=== PATIENT | female | born 1995 | race Caucasian/White ===

== ENCOUNTER 2017-10-20 23:08 | Emergency (ER) | payer BC, OTHER ==
[2017-10-20] MEDS ORDERED: NS 0.9% 1000 ML*IV.FLUID IV ONE (23:24)
[2017-10-20] MEDS ORDERED: Ondansetron ODT TAB* 4 MG ONE (23:45)
[2017-10-20] MEDS ORDERED: Acetaminophen TAB* 325 MG PO ONE (23:46)
--- NOTE | 2017-10-20 23:46 | ED ---
Influenza-Like Illness - HPI Summary HPI Summary: Pt here w/ acute onset fever, chills, generalized weakness, mid to lower back pain, headache, dizziness, ST, lower ab pressure and ribs feel tight. Denies cough, sneezing, rhinorrhea, otalgia, rash, dysuria, vaginal sx. Imms are UTD. She just returned to [place] from [facility] - she lives in [facility] but recently traveled to [facility] for a few days. She is in the . No known sick contacts. LMP Dec 1-4. These are irregular d/t rigorous fitness. When she's not as active , her cycle returns and is normal. - History of Current Complaint Chief Complaint: EDFluSymptoms Time Seen by Provider: 10/20/17 23:21 Hx Obtained From: Patient, Family/[employer] Teacher - parents - Allergy/Home Medications Allergies/Adverse Reactions: Allergies Allergy/AdvReac Type Severity Reaction Status Date / Time No Known Allergies Allergy Verified 08/10/15 21:18 PMH/Surg Hx/FS Hx/Imm Hx Previously Healthy: Yes Endocrine/Hematology History: Denies: Hx Diabetes, Hx Thyroid Disease, Autoimmune Disease Cardiovascular History: Reports: Other Cardiovascular Problems/Disorders - RIGHT SIDED HEART ENLARGEMENT AND IRREGULAR HEARTBEAT Denies: Hx Hypertension, Hx Pacemaker/ICD Respiratory History: Denies: Hx Asthma, Hx Chronic Obstructive Pulmonary Disease (COPD) GI History: Denies: Hx Ulcer Sensory History: Denies: Hx Hearing Aid Psychiatric History: Denies: Hx Panic Disorder - Surgical History Surgery Procedure, Year, and Place: LYMPH NODE BX Infectious Disease History: No Infectious Disease History: Reports: Traveled Outside the [place] in Last 30 Days - [place]; [facility] Denies: Hx Hepatitis, Hx Human Immunodeficiency Virus (HIV), History Other Infectious Disease - Family History Known Family History: Positive: None - Social History Occupation: Employed Full-time - Lives: Dormitory/Roommates - lives in [facility] Alcohol Use: None Hx Substance Use: No Substance Use Type: Reports: None Hx Tobacco Use: No Smoking Status (MU): Never Smoked Tobacco Review of Systems Positive: Fever, Chills, Fatigue Eyes: Negative Negative: Photophobia, Blurred Vision, Diplopia Positive: Sore Throat. Negative: Ear Ache, Nasal Discharge Cardiovascular: Negative Negative: Palpitations, Chest Pain Respiratory: Negative Negative: Shortness Of Breath, Cough Positive: Abdominal Pain - lower ab cramping, Nausea. Negative: Vomiting, Diarrhea Genitourinary: Negative Positive: Arthralgia, Myalgia. Negative: Decreased ROM, Edema Skin: Negative Positive: Headache, Weakness - generalized. Negative: Paresthesia, Numbness, Syncope, Slurred Speech Psychological: Normal All Other Systems Reviewed And Are Negative: Yes Physical Exam Triage Information Reviewed: Yes Vital Signs On Initial Exam: Initial Vitals Temp Pulse Resp BP Pulse Ox 100.4 F 102 20 119/69 99 10/20/17 23:13 10/20/17 23:13 10/20/17 23:13 10/20/17 23:13 10/20/17 23:13 Vital Signs Reviewed: Yes Appearance: Positive: Well-Nourished, Ill-Appearing - appears fatigued, Pain Distress - apepars to be uncomfortable in bed - reports her back is painful Skin: Positive: Warm, Dry Head/Face: Positive: Normal Head/Face Inspection Eyes: Positive: Normal, EOMI, YE, Conjunctiva Clear. Negative: Conjunctiva Inflammed, Discharge ENT: Positive: Normal ENT inspection, Hearing grossly normal, Pharynx normal, TMs normal. Negative: Nasal congestion, Nasal drainage Neck: Positive: Supple, Nontender, No Lymphadenopathy Respiratory/Lung Sounds: Positive: Clear to Auscultation, Breath Sounds Present. Negative: Rales, Rhonchi, Wheezes Cardiovascular: Positive: Normal, Tachycardia, S1, S2. Negative: Murmur, Rub Abdomen Description: Positive: Nontender, No Organomegaly, Soft Bowel Sounds: Positive: Present Musculoskeletal: Positive: Normal, Strength/ROM Intact Neurological: Positive: Normal, Sensory/Motor Intact, Alert, Oriented to Person Place, Time, CN Intact II-III, Other - (-) Yefri/(-) Scar Psychiatric: Positive: Normal - anxious Diagnostics - Vital Signs Vital Signs Temp Pulse Resp BP Pulse Ox 10/20/17 23:26 101.7 F 10/20/17 23:24 95 100 10/20/17 23:23 122/65 10/20/17 23:13 100.4 F 102 20 119/69 99 - Laboratory Result Diagrams: 10/20/17 23:50 10/20/17 23:50 Lab Statement: Any lab studies that have been ordered have been reviewed, and results considered in the medical decision making process. Re-Evaluation - Re-Evaluation First Eval Change: Improved - pain and nausea improved, heart rate improved Flu Symptom Course/Dx - Course Course Of Treatment: Pt here w/ flu-like sx. She intially met SIRS criteris so protocol was initiated except for anbx (pending swabs and labs). She is positive for influenza A so tamiflu was initiated. She reports improved sx w/ acetaminophen, zofran, and IVF. She was d/c'd w/ tamiflu and education. Reviewed danger s/sx of when to return to ED. Pt and parents agree w/ plan. - Diagnoses Provider Diagnoses: Influenza A Discharge - Discharge Plan Condition: Stable Disposition: HOME Prescriptions: Oseltamivir CAP* [Tamiflu CAP*] 75 mg PO BID #7 cap Patient Education Materials: Oseltamivir (By mouth), Influenza (ED) Referrals: Mary Beth Weeks MD [Primary Care Provider] - Additional Instructions: Stay hydrated, rest and complete medication as directed Follow-up with PCP - call to schedule an appointment Saturday *If worse, return to ED
[2017-10-21 00:09] LABS: ABS Basophils 0 10^3/ul (0-0.2); ABS Eosinophils 0 10^3/ul (0-0.6); ABS Lymphocytes 0.3 10^3/ul (1.0-4.8); ABS Monocytes 0.5 10^3/ul (0-0.8); ABS Neutrophils 6.3 10^3/ul (1.5-7.7); ABS Nucleated RBC 0.01 10^3/ul; Eosinophil % 0.3 % (0-6); Hematocrit 46 % (35-47); Lymphocyte % 4.1 % (25-47); Mean Corpuscular HGB Conc 35 g/dl (31-36); Mean Corpuscular Hemoglobin 33 pg (27-31); Mean Corpuscular Volume 94 fL (80-97); Mean Platelet Volume 8 um3 (7.4-10.4); Nucleated Red Blood Cells % 0.1; Platelet Count 193 10^3/ul (150-450); Red Cell Distribution Width 13 % (10.5-15); White Blood Count 7.1 10^3/ul (3.5-10.8)
[2017-10-21 00:18] LABS: INR 1.03 (0.77-1.02)
[2017-10-21 00:19] LABS: EGFR Non-African American 62.8 (>60)
[2017-10-21] MEDS ORDERED: Oseltamivir CAP* 75 MG PO ONE ×2 (00:36→00:41)
[2017-10-21] MEDS ORDERED: Ondansetron ODT TAB* 4 MG PO ONE (00:43)
[2017-10-21 01:09] VITALS: BP 107/61
[2017-10-21 01:13] LABS: Urine Appearance Cloudy; Urine Blood 1+ (Negative); Urine Color Yellow; Urine Ketones Trace (Negative); Urine Protein Negative (Negative); Urine Specific Gravity 1.028 (1.010-1.030); Urine Urobilinogen Negative (Negative)
[2017-10-21] MEDS: NS 0.9% 1000 ML* 1,000 ML IV ONE ×2 (02:27)
== END 2017-10-21 02:28 | disposition home or self-care (01) ==
LOC: ED 23:08
DX: J09.X2 Influenza due to identified novel influenza A virus with other respiratory manifestations (principal); I51.7 Cardiomegaly
CPT/HCPCS: 36415; 80053; 81003; 81015; 83605; 84484; 84702; 85025; 85610; 85730; 86308; 87040; 87502; 96360; 99283; A9270-GY